=== PATIENT | female | born 2000 | race African-American/Black ===

== ENCOUNTER 2020-01-28 08:49 | Emergency (ER) | payer OTHER, SELFPAY ==
--- NOTE | 2020-01-28 08:52 | ED.GENADULT ---
HPI - General Adult General Chief complaint: Urogenital-Female Stated complaint: YEAST INFECTION Time Seen by Provider: 01/28/20 09:41 Source: patient Mode of arrival: ambulatory Limitations: no limitations History of Present Illness HPI narrative: 19-year-old female patient presents to the [facility] with complaints of burning and itchiness to the vaginal area. Patient states last week that she was diagnosed with bacterial vaginosis by her [employer] and was placed on Flagyl as well as a cream to the vaginal area. Patient states that the Flagyl did make her sick. Patient states that she continues now to have symptoms of the burning and vaginal itching. Patient denies concerns for STDs. Patient denies or breast-feeding. Related Data Allergies Allergy/AdvReac Type Severity Reaction Status Date / Time No Known Allergies Allergy Verified 01/25/19 17:21 Review of Systems Review of Systems: Narrative: CONSTITUTIONAL: Denies fever, chills, or sweats. EYES: Denies visual changes, redness, or discharge. ENT: Denies rhinorrhea, congestion, sore throat, or otalgia. CARDIOVASCULAR: Denies chest pain, palpitations, or edema. RESPIRATORY: Denies cough or dyspnea. GASTROINTESTINAL: Denies abdominal pain, nausea, vomiting, or diarrhea. GENITOURINARY: Denies dysuria or hematuria. Positive vaginal itching and white discharge with irritation SKIN: Denies rash or itching. MUSCULOSKELETAL: Denies back pain, joint pain, or myalgia. NEUROLOGIC: Denies headache, numbness, or weakness. PSYCHIATRIC: Denies anxiety or depression. PMFSH Comments At the time of my signature I agree with nursing past medical history, surgical, social, and family history. There is no relevant family history pertinent to the presenting complaint. Exam Narrative: Exam Narrative: GENERAL: Well-appearing, well-nourished, and in no acute distress. HEAD: Normocephalic, atraumatic. EYES: PERRLA and EOMI. ENT: Nares clear, no rhinorrhea or epistaxis. Mucous membranes moist. NECK: Supple. No lymphadenopathy CHEST: Clear to auscultation. No respiratory distress. HEART: Regular rate and rhythm. No murmur heard. Normal peripheral pulses. ABDOMEN: Soft, nontender, nondistended, normal active bowel sounds. No CVA tenderness on percussion : Deferred EXTREMITIES: Normal range of motion. No edema. SKIN: Warm, dry, no rash. NEURO: No focal deficits. Alert and oriented x3. Course Vital Signs Vital signs: Vital Signs Temperature 36.6 C 01/28/20 09:03 Pulse Rate 72 01/28/20 09:03 Respiratory Rate 16 01/28/20 09:03 Blood Pressure 125/76 01/28/20 09:03 Pulse Oximetry 100 01/28/20 09:03 Temperature 36.6 C 01/28/20 09:03 Pulse Rate 72 01/28/20 09:03 Respiratory Rate 16 01/28/20 09:03 Blood Pressure 125/76 01/28/20 09:03 Pulse Oximetry 100 01/28/20 09:03 Vital signs reviewed. Medical Decision Making Differential Diagnosis Differential Diagnosis: Differential diagnosis: Uncomplicated lower UTI, uncomplicated UTI, pyelonephritis gonorrhea, chlamydia, Trichomonas, bacterial vaginosis, herpes, HIV, yeast infection, urinary tract infection. Discussed with patient that it is uncommon to get a yeast infection after being treated with antibiotics especially Flagyl. Discussed with patient we will go ahead and discharge her home with some fluconazole to see if this helps with her symptoms however nothing it could be is persistence of the bacterial vaginosis. Discussed with her that bacterial vaginosis can be very hard to get rid of and sometimes does take multiple doses of antibiotics. If she continues to have symptoms despite using the fluconazole that we have given her today then I encouraged her to follow-up with her [employer] to be tested for bacterial vaginosis again. Patient verbalized understanding denies any other questions or concerns at this time. Vital Signs Vital Signs: Vital Signs Temperature 36.6 C 01/28/20 09:03 Pulse Rate 72
[2020-01-28 09:03] VITALS: BP 125/76; PULSE 72; RESP 16; TEMP 36.6; O2SAT 100
== END 2020-01-28 09:58 | disposition home or self-care (01) ==
PROVIDERS: Emergency Provider Nurse Practitioner Family; PCP Nurse Practitioner Family
DX: B37.3 Candidiasis of vulva and vagina (principal)
CPT/HCPCS: 81003; 81025; 99213; G0463

== ENCOUNTER 2021-06-03 23:38 | Emergency (ER) | payer OTHER, SELFPAY ==
--- NOTE | ~2021-06-03 | XR_ITS ---
EXAMINATION: XR chest 2V DATE: 06/04/2021 01:56 INDICATION: Chest pain TECHNIQUE: PA and lateral views of the chest were obtained. COMPARISON: None FINDINGS: The lungs are clear with no focal airspace opacities, pulmonary edema, pleural effusion or pneumothor ax. The cardiomediastinal silhouette is normal. Visualized bones and soft tissues are unremarkable. IMPRESSION: 1. No acute cardiopulmonary disease. Reviewed, dictated and finalized at location A.
--- NOTE | 2021-06-03 23:43 | ECG_ITS ---
Measurements Intervals Wilson Rate: 91 P: 46 PA: 178 QRS: 18 QRSD: 88 T: 22 QT: 353 QTc: 435 Interpretive Statements SINUS RHYTHM WITH MARKED SINUS ARRHYTHMIA NONSPECIFIC T-WAVE ABNORMALITY NO PREVIOUS ECG AVAILABLE FOR COMPARISON Electronically Signed On 06-04-2021 18:13:07 CDT by Aaliyah Everett M.D.
[2021-06-03 23:48] VITALS: BP 132/85; PULSE 80; RESP 16; TEMP 36.4; O2SAT 100
[2021-06-04 00:01] VITALS: PULSE 96; O2SAT 98
[2021-06-04 00:09] LABS: Basophils Percent Auto 0.4 % (0.2-1.2); Eosinophils Absolute Auto 0.1 K/mm3 (0-0.3); Hematocrit 39.2 % (37.0-47.0); Hemoglobin 12.1 g/dL (12.0-15.0); Immature Granulocyte Absolute 0.02 K/mm3 (0.00-0.031); Immature Granulocyte Percent A 0.3 % (0-0.5); Lymphocytes Absolute Auto 2.78 K/mm3 (0.9-3.2); Mean Corpuscular HGB Conc 30.9 g/dl (32-36); Mean Corpuscular Volume 71.4 fl (80-100); Mean Platelet Volume 9.5 fl (7.4-10.4); Monocytes Absolute Auto 0.6 K/mm3 (0.1-0.6); Monocytes Percent Auto 8.3 % (2.6-8.5); Neutrophils Absolute Auto 3.6 K/mm3 (1.3-6.7); Platelet Count Result 371 k/mm3 (150-375); Red Blood Count 5.49 M/mm3 (4.2-5.4); Red Cell Distribution Width 15.2 % (11.5-14.5); White Blood Count 7.1 K/mm3 (4.5-10.0)
[2021-06-04 00:24] LABS: Anion Gap 6 mmol/L (8-16); Blood Urea Nitrogen 13 mg/dL (7-17); Calcium 8.5 mg/dL (8.4-10.2); Carbon Dioxide 24 mmol/L (22-30); Chloride 106 mmol/L (98-107); Estimated CRCL calculation 105 ml/min; Estimated Glomerular Filt Rate > 60; Glucose 113 mg/dL (65-110); Potassium 3.6 mmol/L (3.4-5.0); Sodium 136 mmol/L (137-145)
[2021-06-04 00:45] LABS: Troponin I < 0.012 ng/mL (0.000-0.034)
--- NOTE | 2021-06-04 01:06 | ED.CHESTPAIN ---
HPI - Chest Pain General Chief Complaint: Chest Pain <LIBBY Fulton Last Filed: 06/04/21 03:01> Stated Complaint: CP, SOB <LIBBY Fulton Last Filed: 06/04/21 03:01> Time Seen by Provider: 06/03/21 23:44 <LIBBY Fulton Last Filed: 06/04/21 03:01> Source: patient <LIBBY Fulton Last Filed: 06/04/21 03:01> Mode of arrival: ambulatory <LIBBY Fulton Last Filed: 06/04/21 03:01> Limitations: no limitations <LIBBY Fulton Last Filed: 06/04/21 03:01> History of Present Illness HPI narrative: Patient is a 20-year-old female who presents to the ED with complaints of L sided chest pain. Patient reports she was exercising 3 weeks ago when she heard a 'pop' in her left-sided chest. She has had intermittent sharp pain in her left-sided chest since then. The pain occasionally radiates into her left-sided neck and left shoulder as an ache and is worse with movement of her LUE. She also reports feeling mildly anxious and short of breath when the pain is severe. She denies any shortness of breath currently in the ED bed or pain with inspiration. Patient denies any fever, chills, nausea, vomiting, abdominal pain, weakness, numbness tingling, cough, palpitations. She has tried taking ibuprofen for this without relief. She last took this at 9 PM last night. <Anne-Marie Calderón PA-C - Last Filed: 06/04/21 03:01> Related Data Home Medications: Home Medications Medication Instructions Recorded Confirmed No Home Medications 06/04/21 06/04/21 <LIBBY Fulton Last Filed: 06/04/21 03:01> Allergies/Adverse Reactions: Allergies Allergy/AdvReac Type Severity Reaction Status Date / Time No Known Allergies Allergy Verified 06/04/21 00:03 <LIBBY Fulton Last Filed: 06/04/21 03:01> Review of Systems Review of Systems: CONSTITUTIONAL: Denies fever, chills, or sweats. ENT: Denies rhinorrhea, congestion CARDIOVASCULAR: Reports left-sided chest pain, occasionally radiating into L neck/shoulder. Denies palpitations, or edema. RESPIRATORY: Reports occasional shortness of breath. Denies cough, pain with inspiration. GASTROINTESTINAL: Denies abdominal pain, nausea, vomiting, or diarrhea. MUSCULOSKELETAL: Denies back pain, joint pain, or myalgia. NEUROLOGIC: Denies headache, numbness, or weakness. PSYCHIATRIC: Reports anxiety. <Anne-Marie Calderón PA-C - Last Filed: 06/04/21 03:01> All systems reviewed & are unremarkable except as noted in HPI and below <Anne-Marie Calderón PA-C - Last Filed: 06/04/21 03:01> [facility] Past Medical History Medical History: Medical History (Updated 06/04/21 @ 02:58 by Anne-Marie Calderón PA-C) No pertinent past medical history <Anne-Marie Calderón PA-C - Last Filed: 06/04/21 03:01> Surgical History Surgical History: Surgical History (Updated 06/04/21 @ 01:06 by Anne-Marie Calderón PA-C) No pertinent past surgical history <Anne-Marie Calderón PA-C - Last Filed: 06/04/21 03:01> Social History Social History: Social History (Updated 06/04/21 @ 01:07 by Anne-Marie Calderón PA-C) Smoking status: Never smoker Substance use type: marijuana <Anne-Marie Calderón PA-C - Last Filed: 06/04/21 03:01> Exam Narrative: GENERAL: Well appearing, well-nourished, non-toxic, in no acute distress. HEAD: Normocephalic, atraumatic. NECK: Supple. No adenopathy, no masses. RESPIRATORY: Airway patent, respirations nonlabored. Clear to auscultation bilaterally, no rales, rhonchi, wheezing. CARDIOVASCULAR: Regular rate and rhythm without murmurs, rubs, or gallops. Peripheral pulses 2+ and equal bilaterally. ABDOMINAL: Soft, nontender, nondistended, no hepatosplenomegaly. Normoactive BS. MUSCULOSKELETAL: Moves all extremities. Strength/ROM intact without gross deformities. No pain with ROM of LUE. Mild tenderness palpation over the L anterior chest wall, just to left of sternum. No edema. No calf tenderness. SKIN: Warm,
[2021-06-04 01:11] VITALS: BP 128/60; PULSE 82; RESP 18; O2SAT 98
[2021-06-04 02:00] VITALS: BP 128/60; PULSE 82; RESP 18; O2SAT 100
[2021-06-04 03:13] VITALS: BP 123/52; PULSE 81; RESP 18; TEMP 36.3; O2SAT 100
== END 2021-06-04 03:13 | disposition home or self-care (01) ==
PROVIDERS: Emergency Provider Emergency Medicine; PCP Family Medicine
DX: R07.89 Other chest pain (principal); R94.31 Abnormal electrocardiogram [ECG] [EKG]
CPT/HCPCS: 36415; 71046; 80048; 84484; 85025; 93005; 96365; 99284; J0131